=== PATIENT | female | born 1980 | race Caucasian/White ===

== ENCOUNTER 2019-06-20 07:15 | Emergency (ER) | payer SELFPAY ==
[2019-06-20] MEDS ORDERED: predniSONE 20 MG TAB ONE (07:25)
[2019-06-20] MEDS ORDERED: Albuterol Sulfate 2.5 mg/0.5 ml Neb ONE (07:26)
[2019-06-20] MEDS ORDERED: Sodium Chloride For Inhalation 0.9% 3 ML NEB ONE (07:32)
--- NOTE | 2019-06-20 07:55 | RAD ---
Exam: Chest one view HISTORY:Dyspnea FINDINGS: Lungs: Mild patchy left basilar density Cardiac silhouette: Normal size Pulmonary vessels: Normal Pleural Spaces: Clear Pneumothorax: None Osseous abnormalities: None of acuity. IMPRESSION: Mild patchy left basilar density. Possibility of subtle area of the interstitial pneumoni tis or atelectasis may account for this finding. Correlate clinically.
[2019-06-20] MEDS ORDERED: Azithromycin 250 MG TAB ONE (09:01)
== END 2019-06-20 09:10 | disposition home or self-care (01) ==
LOC: NAV ERS 07:15
DX: J18.9 Pneumonia, unspecified organism (principal); J45.901 Unspecified asthma with (acute) exacerbation; F17.210 Nicotine dependence, cigarettes, uncomplicated; Z79.51 Long term (current) use of inhaled steroids
CPT/HCPCS: 71045; 94640; 94760; J7512; J7611; J7620